=== PATIENT | female | born 1940 | race Two or more races ===

== ENCOUNTER 2023-12-14 14:29 | Inpatient (IN) | payer OTHER, MEDICAID ==
[~2023-12-14] VITALS: Ht 162.6 cm; Wt 68.7 kg
[2023-12-14 15:32] VITALS: PULSE 58; RESP 20; O2SAT 92
[2023-12-14 15:39] LABS: Basophils # (auto) 0 10 ^3/uL (0-0.2); Basophils % (auto) 0.3 % (0.0-2.0); Eosinophils # (auto) 0 10 ^3/uL (0-0.8); Eosinophils % (auto) 0.2 % (0.0-7.0); Hematocrit 35.9 % (36.0-46.0); Hemoglobin 11.3 g/dL (12.2-16.2); Lymphocytes # (auto) 0.9 10 ^3/uL (0.4-5.4); Lymphocytes % (auto) 7.5 % (10.0-50.0); Mean Corpuscular Hemoglobin 30.1 pg (28.0-32.0); Mean Corpuscular Hgb Conc. 31.6 g/dL (32.0-36.0); Mean Corpuscular Volume 95.4 fL (80.0-100.0); Monocytes # (auto) 0.5 10 ^3/uL (0-1.3); Neutrophils # (auto) 10.9 10 ^3/uL (1.6-8.6); Red Blood Cells 3.76 10^6/uL (4.0-5.20); Red Cell Distribution Width 12.9 % (11.8-14.3); White Blood Cell 12.4 10^3/uL (4.4-10.8)
[2023-12-14 15:58] LABS: Alanine Aminotransferase 16 U/L (7-40); Alkaline Phosphatase 89 U/L (46-116); Anion Gap 6 (5-15); Aspartate Aminotransferase 14 U/L (13-40); BUN/Creatinine Ratio 11.9 (10.0-20.0); Bilirubin, Total 0.3 mg/dL (0.2-1.0); Blood Urea Nitrogen 56 mg/dL (9-23); Calcium 9.1 mg/dL (8.5-10.1); Carbon Dioxide 27 mmol/L (20-30); Chloride 102 mmol/L (98-107); Glucose 112 mg/dL (74-106); Sodium 135 mmol/L (136-145); Total Protein 6.4 g/dL (5.7-8.2)
[2023-12-14 16:11] LABS: Potassium 5.9 mmol/L (3.5-5.1)
[2023-12-14] MEDS: ONDANSETRON HCL 4 MG/2 ML VIAL IV ONE (16:11)
[2023-12-14] MEDS: ALBUTEROL SULF 2.5 MG/0.5ML(0.5%) NEB SOLN NEB ONE (18:12)
[2023-12-14] MEDS: LORazepam 2MG/ML-1ML VIAL IV ONE (18:32)
[2023-12-14] MEDS: CALCIUM GLUC 1,000mg/50ml-NS 50 ML IV ONE (18:42)
[2023-12-14 19:35] VITALS: PULSE 54; RESP 11; O2SAT 92
[2023-12-14] MEDS: InsuLIN REG 1unit/0.01ml Soln (100units/ml) IV ONE (20:20)
[2023-12-14] MEDS: SODIUM BICARB 8.4% 50Meq/50ml SYR INJ IV ONE (20:20)
[2023-12-14] MEDS: DEXTROSE (50%) 50ML SYRG IV ONE (20:20)
[2023-12-14] MEDS: SODIUM CHLORIDE 0.9% 1,000 ML IV ONE ×2 (20:20→23:37)
[2023-12-14] MEDS: ALBUMIN 5% 50 ML IV ONE (20:51)
[2023-12-14] MEDS: cefTRIAXone 1GM/50ML D5W 50 ML IV ONE (21:31)
[2023-12-14] MEDS ORDERED: NITROGLYCERIN 0.4 MG SL TAB SL PRN (21:45)
[2023-12-14 21:51] LABS: Urine Bacteria MANY /hpf (None Seen); Urine Blood 2+ /uL (Negative); Urine Clarity HAZY (Clear); Urine Color Yellow (Yellow); Urine Protein, UAD 1+ (Negative); Urine Specific Gravity 1.015 (1.001-1.035); Urine Urobilinogen Normal (Negative); Urine WBC 60 /hpf (0 - 5); Urine pH 5.5 (5.0-8.0)
[2023-12-14 22:04] LABS: Amphetamine Screen, Urine Neg (NEGATIVE); Barbiturate Scree,Urine Neg (NEGATIVE); Benzodiazephine Screen, Urine Neg (NEGATIVE); Cocaine Screen, Urine Neg (NEGATIVE)
[2023-12-14 22:05] LABS: Cannabinoid Screen, Urine Neg (NEGATIVE); Opiate Scree,Urine Pos (NEGATIVE); Phencyclidine Screen, Urine Neg (NEGATIVE)
[2023-12-14 22:20] LABS: Chloride 105 mmol/L (98-107); Potassium 5.4 mmol/L (3.5-5.1); Sodium 135 mmol/L (136-145)
[2023-12-14 22:21] LABS: Anion Gap 6 (5-15); Carbon Dioxide 24 mmol/L (20-30)
[2023-12-14 22:22] LABS: Calcium 8.6 mg/dL (8.5-10.1)
[2023-12-14 22:26] LABS: Glucose 206 mg/dL (74-106)
[2023-12-14 22:27] LABS: BUN/Creatinine Ratio 7.4 (10.0-20.0)
[2023-12-14 22:28] LABS: Blood Urea Nitrogen 36 mg/dL (9-23)
[2023-12-14] MEDS: SODIUM CHLORIDE 0.9% 1,000 ML IV SCH (23:30)
[2023-12-15] VITALS (7 sets, daily range): BP systolic 93; BP diastolic 33; PULSE 54–79; RESP 16–20; O2SAT 90–98
[2023-12-15] MEDS: ALBUTEROL SULF 2.5 MG/0.5ML(0.5%) NEB SOLN ONE (00:45)
[2023-12-15] MEDS: PHENYLEPHRINE IV 250 ML IV SCH (02:04)
[2023-12-15] MEDS: ALBUTEROL SULF 2.5 MG/0.5ML(0.5%) NEB SOLN NEB PRN (02:09)
[2023-12-15] MEDS: NOREPINEPHRINE 8 MG/250ML KIT 250 ML IV SCH (03:35)
[2023-12-15 05:20] LABS: Basophils # (auto) 0 10 ^3/uL (0-0.2); Basophils % (auto) 0.2 % (0.0-2.0); Eosinophils # (auto) 0 10 ^3/uL (0-0.8); Eosinophils % (auto) 0.1 % (0.0-7.0); Hematocrit 36.3 % (36.0-46.0); Hemoglobin 11.6 g/dL (12.2-16.2); Lymphocytes # (auto) 0.8 10 ^3/uL (0.4-5.4); Lymphocytes % (auto) 5.7 % (10.0-50.0); Mean Corpuscular Hemoglobin 30.7 pg (28.0-32.0); Mean Corpuscular Hgb Conc. 31.8 g/dL (32.0-36.0); Mean Corpuscular Volume 96.5 fL (80.0-100.0); Monocytes # (auto) 0.6 10 ^3/uL (0-1.3); Monocytes % (auto) 4.3 % (0.0-12.0); Neutrophils # (auto) 13.1 10 ^3/uL (1.6-8.6); Neutrophils % (auto) 89.7 % (37.0-80.0); Red Blood Cells 3.76 10^6/uL (4.0-5.20); Red Cell Distribution Width 13.2 % (11.8-14.3); White Blood Cell 14.6 10^3/uL (4.4-10.8)
[2023-12-15 05:37] LABS: Alanine Aminotransferase 36 U/L (7-40); Alkaline Phosphatase 93 U/L (46-116); Anion Gap 8 (5-15); Aspartate Aminotransferase 31 U/L (13-40); BUN/Creatinine Ratio 7.9 (10.0-20.0); Blood Urea Nitrogen 37 mg/dL (9-23); Calcium 8.4 mg/dL (8.7-10.4); Carbon Dioxide 22 mmol/L (20-30); Chloride 106 mmol/L (98-107); Glucose 163 mg/dL (74-106); Potassium 5.2 mmol/L (3.5-5.1); Sodium 136 mmol/L (136-145)
[2023-12-15 05:38] LABS: Bilirubin, Total 0.2 mg/dL (0.2-1.0); Total Protein 6.6 g/dL (5.7-8.2)
[2023-12-15] MEDS: FUROSEMIDE 40 MG/4 ML VIAL IV ONE (13:21)
[2023-12-15] MEDS: CEFEPIME 1GM/ 50ML 50 ML IV SCH (16:14)
[2023-12-15] MEDS ORDERED: cefTRIAXone 1GM/50ML D5W 50 ML IV SCH (21:00)
[2023-12-16] MEDS: LORazepam 2MG/ML-1ML VIAL IV PRN (01:20)
[2023-12-16 06:27] LABS: Anion Gap 7 (5-15); Carbon Dioxide 21 mmol/L (20-30); Chloride 110 mmol/L (98-107); Sodium 138 mmol/L (136-145)
[2023-12-16 06:28] LABS: Calcium 8.6 mg/dL (8.5-10.1)
[2023-12-16 06:33] LABS: BUN/Creatinine Ratio 8.6 (10.0-20.0); Blood Urea Nitrogen 43 mg/dL (9-23); Glucose 83 mg/dL (74-106)
[2023-12-16 06:37] LABS: Potassium 7.1 mmol/L (3.5-5.1)
[2023-12-16] MEDS: SODIUM ZIRCONIUM CYCL 10 GM PAK PO ONE (06:45)
[2023-12-16] MEDS: DEXTROSE (50%) 50ML SYRG IV ONE (06:45)
[2023-12-16] MEDS: InsuLIN REG 1unit/0.01ml Soln (100units/ml) IV ONE (06:45)
[2023-12-16] MEDS: SODIUM BICARB 8.4% 50Meq/50ml SYR Vial IV ONE (06:45)
[2023-12-16] MEDS: CALCIUM GLUC 1,000mg/50ml-NS 50 ML IV ONE (06:45)
[2023-12-16 06:53] VITALS: O2SAT 94
[2023-12-16] MEDS: ALBUTEROL SULF 2.5 MG/0.5ML(0.5%) NEB SOLN NEB ONE (07:30)
[2023-12-16] MEDS: FUROSEMIDE 100 MG/10ML VIAL IV ONE (10:08)
[2023-12-16 13:36] LABS: INR 1.03 (0.9-1.15); Partial Thromboplastin Time 32.8 SEC (24.5-34.5); Prothrombin Time 10.8 sec (9.3-11.8)
[2023-12-16] MEDS: LIDOCAINE 1% (LOCAL ANESTH.) PF 5ml SDV ID ONE (14:18)
[2023-12-16 18:52] VITALS: PULSE 82; RESP 27; O2SAT 93
[2023-12-16 19:00] VITALS: PULSE 81; RESP 26; O2SAT 93
[2023-12-16 19:30] VITALS: PULSE 78; RESP 18; O2SAT 98
[2023-12-16] MEDS: FLEET ENEMA(ADULT) 135 ML PR ONE (21:00)
[2023-12-16] MEDS: SODIUM CHLOR 0.9% PF (SALINE LOCK) 10ML VIAL/SYR IV SCH (22:00)
[2023-12-16] MEDS: hydrALAZINE HCL 20 MG/ML VL IV ONE (23:48)
[2023-12-17] VITALS (16 sets, daily range): BP systolic 118–180; BP diastolic 39–69; PULSE 78–106; RESP 17–29; O2SAT 84–99
[2023-12-17 04:15] LABS: Base Excess -4.3 mmol/L (-2.0-2.0)
[2023-12-17] MEDS: FLEET ENEMA(ADULT) 135 ML PR ONE (09:00)
[2023-12-17 09:03] LABS: Basophils # (auto) 0 10 ^3/uL (0-0.2); Basophils % (auto) 0.4 % (0.0-2.0); Eosinophils # (auto) 0 10 ^3/uL (0-0.8); Hematocrit 30.4 % (36.0-46.0); Hemoglobin 9.7 g/dL (12.2-16.2); Lymphocytes # (auto) 0.4 10 ^3/uL (0.4-5.4); Lymphocytes % (auto) 3.9 % (10.0-50.0); Mean Corpuscular Hemoglobin 30.2 pg (28.0-32.0); Mean Corpuscular Volume 94.5 fL (80.0-100.0); Monocytes # (auto) 0.4 10 ^3/uL (0-1.3); Monocytes % (auto) 4.1 % (0.0-12.0); Neutrophils # (auto) 9.1 10 ^3/uL (1.6-8.6); Neutrophils % (auto) 91.6 % (37.0-80.0); Nucleated Red Blood Cells % 0.1 %; Red Blood Cells 3.22 10^6/uL (4.0-5.20); Red Cell Distribution Width 13.4 % (11.8-14.3); White Blood Cell 9.9 10^3/uL (4.4-10.8)
[2023-12-17 09:22] LABS: Alanine Aminotransferase 23 U/L (7-40); Albumin 3.9 g/dL (3.2-4.8); Alkaline Phosphatase 89 U/L (46-116); Anion Gap 9 (5-15); Aspartate Aminotransferase 22 U/L (13-40); BUN/Creatinine Ratio 14.9 (10.0-20.0); Bilirubin, Total 0.4 mg/dL (0.2-1.0); Calcium 9.5 mg/dL (8.5-10.1); Carbon Dioxide 22 mmol/L (20-30); Chloride 111 mmol/L (98-107); Glucose 90 mg/dL (74-106); Sodium 142 mmol/L (136-145); Total Protein 6.7 g/dL (5.7-8.2)
[2023-12-17 09:25] LABS: Blood Urea Nitrogen 58 mg/dL (9-23)
[2023-12-17] MEDS: FUROSEMIDE INJECTION 100 MG in SODIUM CHL 0.9% 100 ML IV SCH ×2 (10:15→23:23)
[2023-12-17] MEDS: ALBUTEROL SULF 2.5 MG/0.5ML(0.5%) NEB SOLN NEB ONE (11:20)
[2023-12-17] MEDS: InsuLIN REG 1unit/0.01ml Soln (100units/ml) IV ONE (11:59)
[2023-12-17] MEDS: DEXTROSE (50%) 50ML SYRG IV ONE (12:14)
[2023-12-17] MEDS: CALCIUM GLUC 1,000mg/50ml-NS 50 ML IV ONE (12:14)
[2023-12-17] MEDS: SODIUM BICARB 8.4% 50Meq/50ml SYR Vial IV ONE (12:14)
[2023-12-17] MEDS: SODIUM ZIRCONIUM CYCL 10 GM PAK PO SCH (14:00)
[2023-12-17 15:26] LABS: Chloride 111 mmol/L (98-107); Sodium 146 mmol/L (136-145)
[2023-12-17 15:27] LABS: Anion Gap 7 (5-15); Calcium 9.2 mg/dL (8.7-10.4); Carbon Dioxide 28 mmol/L (20-30)
[2023-12-17 15:32] LABS: BUN/Creatinine Ratio 16.5 (10.0-20.0); Blood Urea Nitrogen 57 mg/dL (9-23); Glucose 113 mg/dL (74-106)
[2023-12-17] MEDS: ONDANSETRON HCL 4 MG/2 ML VIAL IV PRN (22:53)
[2023-12-17] MEDS: MORPHINE SULFATE INJ 2 MG/ml SYRG IV PRN (22:54)
[2023-12-18] VITALS (79 sets, daily range): BP systolic 92–205; BP diastolic 33–132; PULSE 62–99; RESP 11–26; TEMP 97.3–101; O2SAT 14–98
[2023-12-18] MEDS: hydrALAZINE HCL 20 MG/ML VL IV ONE ×3 (00:11→15:58)
[2023-12-18] MEDS: ACETAMINOPHEN 650 MG RECT SUPP PR ONE (05:16)
[2023-12-18 07:51] LABS: Chloride 107 mmol/L (98-107); Potassium 4.6 mmol/L (3.5-5.1); Sodium 148 mmol/L (136-145)
[2023-12-18 07:52] LABS: Anion Gap 9 (5-15); Carbon Dioxide 32 mmol/L (20-30)
[2023-12-18 07:57] LABS: BUN/Creatinine Ratio 21.3 (10.0-20.0); Blood Urea Nitrogen 54 mg/dL (9-23); Glucose 117 mg/dL (74-106)
[2023-12-18] MEDS: hydrALAZINE HCL 20 MG/ML VL IV PRN (11:22)
[2023-12-18] MEDS: FUROSEMIDE 100 MG/10ML VIAL IV SCH (17:46)
[2023-12-18] MEDS: hydrALAZINE HCL 25 MG TAB PO SCH (21:23)
[2023-12-18] MEDS: HEPARIN SODIUM (PORCINE) 5000 UNITS/ML 1ML VIAL SC SCH (21:26)
[2023-12-18] MEDS ORDERED: AMLO1TAB22 PO (23:42)
[2023-12-18] MEDS ORDERED: TRAZ1TAB12 PO (23:42)
[2023-12-18] MEDS ORDERED: GABA-1308 PO (23:42)
[2023-12-18] MEDS ORDERED: DONE1TAB88 PO (23:42)
[2023-12-18] MEDS ORDERED: HYDR-4297 PO (23:42)
[2023-12-19] VITALS (37 sets, daily range): BP systolic 149–189; BP diastolic 38–97; PULSE 75–102; RESP 16–24; TEMP 96.3–98.7; O2SAT 90–99
[2023-12-19 06:19] LABS: Basophils # (auto) 0 10 ^3/uL (0-0.2); Basophils % (auto) 0.2 % (0.0-2.0); Eosinophils # (auto) 0 10 ^3/uL (0-0.8); Eosinophils % (auto) 0.2 % (0.0-7.0); Hematocrit 31.4 % (36.0-46.0); Hemoglobin 10.3 g/dL (12.2-16.2); Lymphocytes # (auto) 0.7 10 ^3/uL (0.4-5.4); Lymphocytes % (auto) 7.4 % (10.0-50.0); Mean Corpuscular Hemoglobin 30.9 pg (28.0-32.0); Mean Corpuscular Hgb Conc. 32.8 g/dL (32.0-36.0); Mean Corpuscular Volume 94.2 fL (80.0-100.0); Monocytes # (auto) 0.5 10 ^3/uL (0-1.3); Monocytes % (auto) 5.3 % (0.0-12.0); Neutrophils # (auto) 7.8 10 ^3/uL (1.6-8.6); Neutrophils % (auto) 86.9 % (37.0-80.0); Nucleated Red Blood Cells % 0.1 %; Red Blood Cells 3.33 10^6/uL (4.0-5.20); Red Cell Distribution Width 13.5 % (11.8-14.3)
[2023-12-19 06:27] LABS: Anion Gap 13 (5-15); Carbon Dioxide 35 mmol/L (20-30); Chloride 104 mmol/L (98-107); Potassium 4.1 mmol/L (3.5-5.1); Sodium 152 mmol/L (136-145)
[2023-12-19 06:28] LABS: Calcium 9.8 mg/dL (8.7-10.4)
[2023-12-19 06:33] LABS: BUN/Creatinine Ratio 30.9 (10.0-20.0); Glucose 99 mg/dL (74-106); Magnesium 2.6 mg/dL (1.6-2.6)
[2023-12-19 06:35] LABS: Phosphorus 3.6 mg/dL (2.4-5.1)
[2023-12-19 06:41] LABS: Blood Urea Nitrogen 68 mg/dL (9-23)
[2023-12-19] MEDS: amLODIPine BESYLATE 5 MG TAB PO SCH (10:00)
[2023-12-19] MEDS ORDERED: CLINIMIX PER PHARMACY 0 ML IV SCH (14:45)
[2023-12-19] MEDS: AMINO ACID INFUSION IN D10W 1,000 ML IV SCH (20:01)
[2023-12-19] MEDS: DOCUSATE ORAL LIQUID 100 MG/10 ML UD PO SCH (21:03)
[2023-12-19] MEDS ORDERED: DOCUSATE SOD 100 MG CAP PO SCH (22:00)
[2023-12-19] MEDS: ACETAMINOPHEN 325 MG TAB PO PRN (23:25)
[2023-12-19] MEDS: ACCU-CHEK COMFORT CURVE STRIP VI SCH (23:47)
[2023-12-19] MEDS: InsuLIN REG 1unit/0.01ml Soln (100units/ml) SC SCH (23:47)
[2023-12-20] VITALS (32 sets, daily range): BP systolic 124–188; BP diastolic 39–86; PULSE 74–107; RESP 11–26; TEMP 98.1–99.1; O2SAT 93–100
[2023-12-20] MEDS ORDERED: DEXTROSE (50%) 50ML SYRG IV SCH
[2023-12-20 05:36] LABS: Basophils # (auto) 0.1 10 ^3/uL (0-0.2); Basophils % (auto) 0.6 % (0.0-2.0); Eosinophils # (auto) 0.1 10 ^3/uL (0-0.8); Eosinophils % (auto) 0.8 % (0.0-7.0); Hemoglobin 11.7 g/dL (12.2-16.2); Lymphocytes # (auto) 1.1 10 ^3/uL (0.4-5.4); Lymphocytes % (auto) 11.8 % (10.0-50.0); Mean Corpuscular Hemoglobin 30.8 pg (28.0-32.0); Mean Corpuscular Hgb Conc. 32.6 g/dL (32.0-36.0); Mean Corpuscular Volume 94.3 fL (80.0-100.0); Monocytes # (auto) 0.8 10 ^3/uL (0-1.3); Monocytes % (auto) 8.6 % (0.0-12.0); Neutrophils # (auto) 7.2 10 ^3/uL (1.6-8.6); Neutrophils % (auto) 78.2 % (37.0-80.0); Nucleated Red Blood Cells % 0.1 %; Red Blood Cells 3.82 10^6/uL (4.0-5.20); Red Cell Distribution Width 13.6 % (11.8-14.3); White Blood Cell 9.2 10^3/uL (4.4-10.8)
[2023-12-20 06:04] LABS: Alanine Aminotransferase 21 U/L (7-40); Albumin 4.1 g/dL (3.2-4.8); Alkaline Phosphatase 86 U/L (46-116); Anion Gap 10 (5-15); Aspartate Aminotransferase 23 U/L (13-40); BUN/Creatinine Ratio 37.1 (10.0-20.0); Bilirubin, Total 0.7 mg/dL (0.2-1.0); Blood Urea Nitrogen 75 mg/dL (9-23); Calcium 10.1 mg/dL (8.7-10.4); Carbon Dioxide 38 mmol/L (20-30); Chloride 106 mmol/L (98-107); Glucose 152 mg/dL (74-106); Magnesium 2.6 mg/dL (1.6-2.6); Potassium 3.3 mmol/L (3.5-5.1); Sodium 154 mmol/L (136-145); Total Protein 7.4 g/dL (5.7-8.2)
[2023-12-20] MEDS: POTASSIUM CHL 20MEQ/100ML 100 ML IV SCH (11:11)
[2023-12-20] MEDS: D5W 5% 1,000 ML IV SCH (11:11)
[2023-12-20] MEDS ORDERED: POLYETHYLENE GLYCOL 17 GM PWDR PO PRN (15:00)
[2023-12-21] VITALS (25 sets, daily range): BP systolic 117–163; BP diastolic 3–77; PULSE 75–110; RESP 16–27; TEMP 97.8–98.5; O2SAT 90–99
[2023-12-21 08:29] LABS: Alanine Aminotransferase 24 U/L (7-40); Albumin 3.6 g/dL (3.2-4.8); Alkaline Phosphatase 76 U/L (46-116); Anion Gap 5 (5-15); Aspartate Aminotransferase 27 U/L (13-40); BUN/Creatinine Ratio 43.9 (10.0-20.0); Calcium 9.2 mg/dL (8.5-10.1); Carbon Dioxide 35 mmol/L (20-30); Chloride 106 mmol/L (98-107); Glucose 147 mg/dL (74-106); Potassium 3.1 mmol/L (3.5-5.1)
[2023-12-21 08:30] LABS: Bilirubin, Total 0.6 mg/dL (0.2-1.0); Phosphorus 1.2 mg/dL (2.4-5.1); Total Protein 6.4 g/dL (5.7-8.2)
[2023-12-21 08:36] LABS: Sodium 146 mmol/L (136-145)
[2023-12-21 08:37] LABS: Blood Urea Nitrogen 61 mg/dL (9-23)
[2023-12-21] MEDS: FUROSEMIDE 40 MG TAB PO SCH (11:04)
[2023-12-21 11:23] LABS: Magnesium 2.1 mg/dL (1.6-2.6)
[2023-12-21] MEDS: POTASSIUM PHOSPHATE 26.4 MEQ in SODIUM CHL 0.9% 100 ML IV ONE (11:44)
[2023-12-21 18:35] LABS: Potassium 3.5 mmol/L (3.5-5.1)
[2023-12-21 18:44] LABS: Phosphorus 3.5 mg/dL (2.4-5.1)
[2023-12-21] MEDS: METOPROLOL TARTRATE 25 MG TAB PO SCH (22:13)
[2023-12-21] MEDS: AMIODARONE HCL 200 MG TAB PO SCH (22:22)
[2023-12-22] VITALS (9 sets, daily range): BP systolic 113–169; BP diastolic 48–75; PULSE 72–118; RESP 18–34; TEMP 97.3–98.6; O2SAT 92–97
[2023-12-22 07:13] LABS: Calcium 8.5 mg/dL (8.7-10.4)
[2023-12-22 07:18] LABS: BUN/Creatinine Ratio 39.5 (10.0-20.0)
[2023-12-22 07:19] LABS: Magnesium 1.9 mg/dL (1.6-2.6)
[2023-12-22 07:20] LABS: Albumin 3.6 g/dL (3.2-4.8); Phosphorus 1.9 mg/dL (2.4-5.1)
[2023-12-22] MEDS: APIXABAN 2.5 MG TAB PO SCH (09:28)
[2023-12-22] MEDS: POTASSIUM PHOSPHATE 44 MEQ in D5W 5% 250 ML IV ONE (14:51)
[2023-12-22] MEDS: MAGNESIUM SULFATE 1GM/100ML 100 ML IV ONE (17:37)
[2023-12-23] VITALS (8 sets, daily range): BP systolic 97–153; BP diastolic 55–77; PULSE 61–85; RESP 18–22; TEMP 97.4–98.2; O2SAT 93–98
[2023-12-23 06:24] LABS: Alanine Aminotransferase 24 U/L (7-40); Albumin 3.7 g/dL (3.2-4.8); Alkaline Phosphatase 72 U/L (46-116); Anion Gap 8 (5-15); Aspartate Aminotransferase 28 U/L (13-40); BUN/Creatinine Ratio 35.7 (10.0-20.0); Bilirubin, Total 0.5 mg/dL (0.2-1.0); Blood Urea Nitrogen 41 mg/dL (9-23); Calcium 8.5 mg/dL (8.7-10.4); Carbon Dioxide 29 mmol/L (20-30); Chloride 103 mmol/L (98-107); Glucose 136 mg/dL (74-106); Magnesium 2.1 mg/dL (1.6-2.6); Phosphorus 4.5 mg/dL (2.4-5.1); Potassium 3.2 mmol/L (3.5-5.1); Sodium 140 mmol/L (136-145)
[2023-12-23 06:25] LABS: Total Protein 6.6 g/dL (5.7-8.2)
[2023-12-23] MEDS: cefTRIAXone 1GM/50ML D5W 50 ML IV SCH (09:30)
[2023-12-23] MEDS ORDERED: APIX2.5T PO (10:36)
[2023-12-23] MEDS ORDERED: MET25T PO (10:36)
[2023-12-23] MEDS ORDERED: AMIO200T33 PO (10:37)
[2023-12-23] MEDS: POTASSIUM CHL 20MEQ/100ML 100 ML IV SCH (11:44)
[2023-12-24] VITALS (7 sets, daily range): BP systolic 128–158; BP diastolic 43–58; PULSE 60–66; RESP 18–20; TEMP 97.8–98.7; O2SAT 94–98
[2023-12-24 05:30] LABS: Potassium 3.6 mmol/L (3.5-5.1)
[2023-12-24 05:32] LABS: Calcium 8.4 mg/dL (8.7-10.4)
[2023-12-24 05:37] LABS: BUN/Creatinine Ratio 30.9 (10.0-20.0)
[2023-12-24 05:39] LABS: Albumin 3.5 g/dL (3.2-4.8); Phosphorus 2.8 mg/dL (2.4-5.1)
[2023-12-24] MEDS: FLUCONAZOLE 200MG/100ML 100 ML IV SCH (12:34)
[2023-12-25] MEDS ORDERED: HALOPERIDOL LACTATE 5 MG/ML INJ VIAL IV PRN (00:45)
[2023-12-25 04:48] VITALS: BP 150/57; PULSE 78; RESP 20; TEMP 97.9; O2SAT 97
[2023-12-25 07:39] LABS: Potassium 3.2 mmol/L (3.5-5.1)
[2023-12-25 07:40] LABS: Calcium 9.4 mg/dL (8.5-10.1)
[2023-12-25 07:47] LABS: Phosphorus 1.7 mg/dL (2.4-5.1)
[2023-12-25 08:00] VITALS: PULSE 64; RESP 18; O2SAT 95
[2023-12-25 08:03] LABS: Magnesium 1.8 mg/dL (1.6-2.6)
[2023-12-25 08:30] VITALS: PULSE 56
[2023-12-25 08:50] VITALS: BP 148/69; PULSE 65; RESP 18; TEMP 98.2; O2SAT 93
[2023-12-25] MEDS: diphenhdrAMINE HCL 25 MG CAP PO PRN (12:07)
[2023-12-25] MEDS: POTASSIUM EFFERVESENT TAB 25 MEQ PO ONE (12:07)
[2023-12-25 12:55] VITALS: BP 147/76; PULSE 61; RESP 18; TEMP 98.2; O2SAT 98
== END 2023-12-25 16:30 | disposition hospice, home (50) | DRG 871 ==
LOC: EDBD 14:29 → ER 14:29 → TELE 21:46 → ICU WEST 12-18 04:11 → DOU IN ICU 12-18 18:11 → TELE-WESTW 12-21 21:05
PROVIDERS: ADMIT Nurse Practitioner; ATTEND Internal Medicine
PROC: 02HV33Z Insertion of Infusion Device into Superior Vena Cava, Percutaneous Approach (ICD-10-PCS; 2023-12-16)
PROC: B548ZZA Ultrasonography of Superior Vena Cava, Guidance (ICD-10-PCS; 2023-12-16)
PROC: 5A09357 Assistance with Respiratory Ventilation, Less than 24 Consecutive Hours, Continuous Positive Airway Pressure (ICD-10-PCS; principal; 2023-12-17)
PROC: 5A09357 Assistance with Respiratory Ventilation, Less than 24 Consecutive Hours, Continuous Positive Airway Pressure (ICD-10-PCS; 2023-12-18)
PROC: 5A09357 Assistance with Respiratory Ventilation, Less than 24 Consecutive Hours, Continuous Positive Airway Pressure (ICD-10-PCS; 2023-12-19)
PROC: 5A09357 Assistance with Respiratory Ventilation, Less than 24 Consecutive Hours, Continuous Positive Airway Pressure (ICD-10-PCS; 2023-12-20)
DX: A41.9 Sepsis, unspecified organism (principal); G93.41 Metabolic encephalopathy; J96.00 Acute respiratory failure, unspecified whether with hypoxia or hypercapnia; N39.0 Urinary tract infection, site not specified; N17.9 Acute kidney failure, unspecified; N18.4 Chronic kidney disease, stage 4 (severe); I13.0 Hypertensive heart and chronic kidney disease with heart failure and stage 1 through stage 4 chronic kidney disease, or unspecified chronic kidney disease; R57.9 Shock, unspecified; I48.20 Chronic atrial fibrillation, unspecified; F03.90 Unspecified dementia, unspecified severity, without behavioral disturbance, psychotic disturbance, mood disturbance, and anxiety; E87.5 Hyperkalemia; J44.9 Chronic obstructive pulmonary disease, unspecified; T50.905A Adverse effect of unspecified drugs, medicaments and biological substances, initial encounter; R73.9 Hyperglycemia, unspecified; E87.6 Hypokalemia; I50.9 Heart failure, unspecified; Z83.3 Family history of diabetes mellitus; Z82.49 Family history of ischemic heart disease and other diseases of the circulatory system; Z88.0 Allergy status to penicillin
CPT/HCPCS: 36415; 36569; 36600; 70450; 71045; 74176; 80048; 80053; 80069; 80307; 81001; 82805; 82962; 83605; 83735; 84100; 84132; 84484; 85025; 85610; 85730; 87040; 87081; 87086; 87088; 87493; 92610; 93005; 93306; 94640; 94660; 97110; 97116; 97163; 97530; 99291; G0378; J1450; J1815; J2405; J3480; J7042; J7060